=== PATIENT | female | born 1960 | race Caucasian/White ===

== ENCOUNTER → 2017-08-31 | Outpatient (CLI) | payer BC ==
--- NOTE | 2017-09-01 08:40 | Diagnostic Imaging Report ---
TECHNIQUE: Magnetic resonance imaging of the RIGHT KNEE was performed WITHOUT injected contrast. HISTORY: Knee pain COMPARISON: None available. FINDINGS: LIGAMENTS AND TENDONS: ACL: Intact PCL: Remote high-grade tear with scarring area in Collateral ligaments: Intact Iliotibial band: Unremarkable Popliteal tendon: Intact Extensor mechanism: Intact JOINT: Menisci: Medial: Complex tearing of the body with extrusion Lateral: Intact without discrete tear Articular Cartilage: Medial Compartment: Diffuse high-grade cartilage loss with areas of full-thickness erosion and subchondral edema. Lateral Compartment: Diffuse low grade cartilage loss Patellofemoral Compartment: Diffuse intermediate grade cartilage loss Joint Fluid: Small joint effusion. BONE: As above. No acute fracture. SOFT TISSUES: Otherwise, unremarkable. IMPRESSION: Medial meniscus complex tear of the body with extrusion results in areas of full-thickness cartilage loss and mild subchondral edema. Signed by: Dr. Moises Gaston M.D. on 09/01/2017 8:37 AM
== END ==
LOC: MRI 15:39
PROVIDERS: ATTEND Family Medicine
DX: S83.211D Bucket-handle tear of medial meniscus, current injury, right knee, subsequent encounter (principal)

== ENCOUNTER → 2018-05-13 | Outpatient (CLI) | payer BC ==
--- NOTE | 2018-06-02 08:52 | Diagnostic Imaging Report ---
#[id number] - MGSCRBIL #BILATERAL DIGITAL SCREENING MAMMOGRAM WITH CAD: 05/13/2018 CLINICAL: Routine screening. Comparison is made to exam dated: 04/16/2017 mammogram - [facility]. Current study contains 4 films. The tissue of both breasts is heterogeneously dense. This may lower the sensitivity of mammography. Current study was also evaluated with a Computer Aided Detection (CAD) system. There are benign calcifications in both breasts. No significant masses, calcifications, or other findings are seen in either breast. There has been no significant interval change. IMPRESSION: BENIGN There is no mammographic evidence of malignancy. A 1 year screening mammogram is recommended. The patient will be notified by letter of the results. Gucci winn/charli:06/01/2018 13:24:08 Stewarding Supervisor: Sapphire CARRASQUILLO(Courtney)(M), [facility] letter sent: Compared to Prior B9 Mammogram BI-RADS: 2 Benign
== END ==
LOC: MAMMO 14:10
PROVIDERS: ATTEND Family Medicine
DX: Z12.31 Encounter for screening mammogram for malignant neoplasm of breast (principal)
CPT/HCPCS: 77067

== ENCOUNTER → 2018-06-04 | Outpatient (CLI) | payer BC ==
--- NOTE | 2018-06-04 17:01 | Diagnostic Imaging Report ---
EXAM: BONE MINERAL DENSITY HISTORY: Bone mineralization evaluation COMPARISON: None DISCUSSION: Evaluation of the left hip and lumbar spine was performed utilizing DEXA Hologic bone densitometer. The study is technically adequate. Left hip femoral neck bone mineral density: 0.77 g/cm2, T-score is -0.7, Z-score is 0.6. Left hip total bone mineral density: 0.82 g/cm2, T-score is -1.0, Z-score is 0.0. Bone mineralization increased by 1.3%. Lumbar spine total bone mineral density: 1.09 gm/cm2, T-score is 0.4, Z-score is 1.8. Bone mineralization decreased by 0.4%. Impression: Bone mineralization by WHO Classification is normal, the fracture risk is not increased. Signed by: Dr. Moises Gaston M.D. on 06/04/2018 4:58 PM
== END ==
LOC: DX 15:28
PROVIDERS: ATTEND Family Medicine
DX: N95.9 Unspecified menopausal and perimenopausal disorder (principal)
CPT/HCPCS: 77080